=== PATIENT | female | born 1960 | race Caucasian/White ===

== ENCOUNTER 2016-10-02 14:25 | Emergency (ER) | payer BC ==
[2016-10-02 11:19] LABS: BASOPHILS 0.2 %; BASOPHILS ABSOLUTE 0.02 10/3/uL (0.0-0.16); EOSINOPHILS 1.6 %; EOSINOPHILS ABSOLUTE 0.15 10/3/uL (0.0-0.53); ER CBC TAT 0 Hrs 05 Mins; HEMOGLOBIN 12.4 g/dL (12.0-16.0); IMMATURE GRANULOCYTES 0.1 %; IMMATURE GRANULOCYTES ABSOLUTE 0.01 10/3/uL (0.0-0.11); LYMPHOCYTES 36.2 %; MEAN CORPUS HGB CONC 30.8 g/dL (32.0-36.0); MEAN CORPUSCULAR HEMOGLOB 26.3 pg (26.0-34.0); MEAN CORPUSCULAR VOLUME 85.2 fL (80-100); MEAN PLATELET VOLUME 8.9 fL (9.2-13.0); MONOCYTES 6.4 %; MONOCYTES ABSOLUTE 0.58 10/3/uL (0.21-1.20); NEUTROPHILS 55.5 %; NEUTROPHILS ABSOLUTE 5.05 10/3/uL (2.02-8.40); RBC DISTRIBUTION WIDTH 15.1 % (12.0-16.0); RED CELL COUNT 4.72 10/6/uL (4.0-5.6); WHITE BLOOD CELLS 9.1 10/3/uL (4.5-10.5)
[2016-10-02 11:20] LABS: HEMATOCRIT 40.2 % (36.0-48.0); PLATELET COUNT 293 10/3/uL (150-400)
[2016-10-02 11:21] LABS: MANUAL DIFF NO %
[2016-10-02 11:22] LABS: ASCORBIC ACID (UR NOT ORDER) NEG (NEG); BILIRUBIN, URINE NEGATIVE (NEG); ER URINALYSIS TAT 0 Hrs 08 Mins; KETONE, URINE NEGATIVE (NEG); LEUKOCYTE ESTERASE(NOT OR SMALL (NEG); NITRITE (URINE) NEG (NEG); WBC (NOT ORDERED) (RFLEX) 5 (0-5)
[2016-10-02 11:32] LABS: A/G RATIO 0.7 (0.7-1.9); ALBUMIN 3.6 G/DL (3.5-5.0); ALKALINE PHOSPHATASE 77 U/L (45-117); CALCIUM, SERUM 9.6 MG/DL (8.5-10.4); CHLORIDE, SERUM 108 MMOL/L (96-112); CO2 (CARBON DIOXIDE) 27 MMOL/L (24-34); CREATININE 0.98 MG/DL (0.55-1.02); GFR AFRICAN AMERICAN 74 ML/MIN (>=60); GFR NON AFRICAN AMERICAN 64 ML/MIN (>=60); GLOBULIN 4.9 G/DL (2.5-4.1); GLUCOSE, SERUM 129 MG/DL (60-99); SGOT(AST) 19 U/L (5-40); SGPT(ALT) 28 U/L (5-65); SODIUM, SERUM 145 MMOL/L (135-148); TOTAL BILIRUBIN 0.6 MG/DL (0-1.2); TOTAL PROTEIN 8.5 G/DL (6.0-8.5)
[2016-10-02 11:33] LABS: BUN (BLOOD UREA NITROGEN) 15 MG/DL (6-23); POTASSIUM, SERUM 3.5 MMOL/L (3.5-5.3)
[~2016-10-02 14:25] MED LIST: ARMOUR THYRO60 MG PO; BACDS PO; CYMBALTA30 PO; ESTRADIOL SL; FISH OIL300 MG PO; FLEX PO; KLONO1 PO; LORTAB10 PO; LUNESTA3 MG PO; MAX25 PO; MIRAPEX125 PO; NAP500 PO; PRO SL; TES SL; TRAZ100 PO
== END 2016-10-02 15:41 | disposition home or self-care (01) ==
LOC: ER 14:25
PROVIDERS: Hospitalist
DX: G89.29 Other chronic pain (principal); C80.1 Malignant (primary) neoplasm, unspecified; Z65.8 Other specified problems related to psychosocial circumstances; F11.20 Opioid dependence, uncomplicated; Z79.899 Other long term (current) drug therapy; Z91.041 Radiographic dye allergy status
CPT/HCPCS: 80053; 81001; 83690; 84703; 85025; 87077; 87086; 87186; 96372; 99284; J1170

== ENCOUNTER 2016-12-23 23:58 | Emergency (ER) | payer BC ==
[2016-12-23 19:43] LABS: BASOPHILS 0.2 %; BASOPHILS ABSOLUTE 0.02 10/3/uL (0.0-0.16); EOSINOPHILS 2.2 %; EOSINOPHILS ABSOLUTE 0.24 10/3/uL (0.0-0.53); ER CBC TAT 0 Hrs 11 Mins; HEMATOCRIT 37.5 % (36.0-48.0); HEMOGLOBIN 11.3 g/dL (12.0-16.0); IMMATURE GRANULOCYTES 0.2 %; IMMATURE GRANULOCYTES ABSOLUTE 0.02 10/3/uL (0.0-0.11); LYMPHOCYTES 21.2 %; LYMPHOCYTES ABSOLUTE 2.29 10/3/uL (0.67-4.30); MANUAL DIFF NO %; MEAN CORPUS HGB CONC 30.1 g/dL (32.0-36.0); MEAN CORPUSCULAR HEMOGLOB 25.9 pg (26.0-34.0); MEAN CORPUSCULAR VOLUME 85.8 fL (80-100); MEAN PLATELET VOLUME 9.4 fL (9.2-13.0); MONOCYTES 6.3 %; MONOCYTES ABSOLUTE 0.68 10/3/uL (0.21-1.20); NEUTROPHILS 69.9 %; NEUTROPHILS ABSOLUTE 7.54 10/3/uL (2.02-8.40); PLATELET COUNT 255 10/3/uL (150-400); RED CELL COUNT 4.37 10/6/uL (4.0-5.6); WHITE BLOOD CELLS 10.8 10/3/uL (4.5-10.5)
[2016-12-23 19:50] LABS: ASCORBIC ACID (UR NOT ORDER) NEG (NEG); BILIRUBIN, URINE SMALL (NEG); ER URINALYSIS TAT 0 Hrs 18 Mins; KETONE, URINE TRACE MG/DL (NEG); LEUKOCYTE ESTERASE(NOT OR LARGE (NEG); NITRITE (URINE) NEG (NEG); WBC (NOT ORDERED) (RFLEX) 60 (0-5)
[2016-12-23 19:51] LABS: PARTIAL THROMBO TIME 30.9 SEC (22.5-37.2); PROTIME (NOT ORD) 13.3 SEC (12.0-14.5)
[2016-12-23 19:57] LABS: BUN (BLOOD UREA NITROGEN) 14 MG/DL (6-23); CALCIUM, SERUM 9.2 MG/DL (8.5-10.4); CHEST PAIN PROFILE TAT 0 Hrs 25 Mins; CHLORIDE, SERUM 106 MMOL/L (96-112); CO2 (CARBON DIOXIDE) 31 MMOL/L (24-34); CREATININE 1.39 MG/DL (0.55-1.02); GFR AFRICAN AMERICAN 49 ML/MIN (>=60); GFR NON AFRICAN AMERICAN 42 ML/MIN (>=60); POTASSIUM, SERUM 3.5 MMOL/L (3.5-5.3); SODIUM, SERUM 142 MMOL/L (135-148); TROPONIN I <0.02 NG/ML (<0.05)
[2016-12-23 19:58] LABS: GLUCOSE, SERUM 85 MG/DL (60-99)
[2016-12-24 00:53] LABS: AMPHETAMINES (NOT ORD) POS (NEG); BENZODIAZEPINES (NOT ORD) POS (NEG); COCAINE (NOT ORDERED) NEG (NEG); PHENCYCLIDINE(PCP) NEG (NEG)
[2016-12-24 00:54] LABS: BARBITURATES (NOT ORDERED NEG (NEG); CANNABINOIDS (THC) NEG (NEG); OPIATES POS (NEG); TRICYCLICS NEG (NEG)
[2016-12-24] MEDS ORDERED: NORCO1 TAB PO (01:44)
[2016-12-24] MEDS ORDERED: ZANAFLEX 4 MG TA4 MG PO (01:44)
[2016-12-24] MEDS ORDERED: XANAX1 MG PO (01:45)
[2016-12-24] MEDS ORDERED: XANAX2 MG PO (01:46)
[2016-12-24] MEDS ORDERED: ARMOUR THYRO60 MG PO (01:46)
[2016-12-24] MEDS ORDERED: LIOR10 PO (01:46)
[2016-12-24] MEDS ORDERED: PAX20 PO (01:47)
[2016-12-24] MEDS ORDERED: CELEXA40 MG PO (01:47)
[2016-12-24] MEDS ORDERED: PROMETRIUM200 MG PO (01:50)
[2016-12-24] MEDS ORDERED: HORMONE INJECTION IM (01:52)
[2016-12-24] MEDS ORDERED: TRAZ100 PO (01:58)
[2016-12-24] MEDS ORDERED: CAMBIA PO (02:01)
[2016-12-24] MEDS ORDERED: OMEGA-3 KRILL PO (02:03)
[2016-12-24] MEDS ORDERED: HARD NAILS PO (02:03)
[2016-12-24] MEDS ORDERED: GRALISE600 MG PO (02:03)
[2016-12-24] MEDS ORDERED: VITAMIN D31000 UNIT PO (02:03)
[2016-12-24] MEDS ORDERED: VITAMIN B PO (02:03)
== END 2016-12-24 02:56 | disposition home or self-care (01) ==
LOC: ER 23:58
PROVIDERS: Emergency Medicine
DX: R55 Syncope and collapse (principal); N39.0 Urinary tract infection, site not specified; E11.9 Type 2 diabetes mellitus without complications; Z91.041 Radiographic dye allergy status; Z79.891 Long term (current) use of opiate analgesic; Z79.899 Other long term (current) drug therapy
CPT/HCPCS: 70450; 80048; 80305; 81001; 83735; 84484; 85025; 85610; 85730; 87077; 87086; 87186; 93005; 93225; 99284; A9270-GY